=== PATIENT | female | born 1980 | race Caucasian/White ===

== ENCOUNTER 2024-02-11 08:47 | Emergency (ER) | payer OTHER, SELFPAY ==
[2024-02-11 09:01] VITALS: BP 148/91; PULSE 76; RESP 16; TEMP 36.6; O2SAT 99; BMI 40.3
--- NOTE | 2024-02-11 09:18 | ED.GENADULT ---
HPI - General Adult General Chief complaint: Shortness of Breath/Dyspnea Stated complaint: shortness of breath, chest tightness Time Seen by Provider: 02/11/24 09:17 History of Present Illness HPI narrative: Yesterday, having headaches. Today woke up at 2 am feeling like she couldn't breathe or hard to take a deep breath. 43-year-old woman presenting to the emergency department with a sensation of chest pressure heaviness that began this dollyman. She did have a frontal headache yesterday and it has continued but much less now. She is concerned partly given her family history were father with an IN at age 55 in subsequent strokes. Mother with early strokes. Little bit of a cough which she attributes to the humidity. Just feels exertionally fatigued and feels like she can not catch her breath with walking. Little leg swelling yesterday. Has been engaged in computer/desk work. Normally very active in this is not like her. No fever. History of dyspepsia heartburn Related Data Home Medications ?Medication ?Instructions ?Recorded ?Confirmed bupropion HCl PO 02/11/24 citalopram .ROUTE 02/11/24 hydrochlorothiazide 25 mg tablet 12.5 mg PO DAILY 02/11/24 02/11/24 omeprazole 20 mg capsule,delayed 20 mg PO DAILY 02/11/24 02/11/24 release Allergies Allergy/AdvReac Type Severity Reaction Status Date / Time estrogens, conjugated Allergy Intermediate Verified 02/11/24 08:59 trazodone Allergy Intermediate Verified 02/11/24 08:59 Tetanus Vaccines and Toxoid Allergy Mild Anaphylaxis Verified 02/11/24 08:59 Review of Systems Status of ROS: Reports: 6 or more systems reviewed and unremarkable except as noted in History and below [facility] Social History Smoking Status: Never smoker Non-prescribed substance use: denies use Exam Narrative: Exam Narrative: Abdomen is overweight overweight. Soft and nontender. No discomfort to palpation over the chest. She does appear mildly anxious, worried. Lungs are clear with equal expansion excursion. Lower extremities with maybe some bilateral dependent edema. Const: Vital Signs, click to edit/add: Vital Signs - 24 hr 02/11/24 09:01 02/11/24 10:27 02/11/24 10:29 Temperature 98 F Pulse Rate [Pulse Oximeter] 76 Respiratory Rate 16 16 Blood Pressure 166/93 H Blood Pressure [Ri ght Upper Arm] 148/91 H Pulse Oximetry 99 98 Oxygen Delivery Me thod Room Air Room Air Documenting provider has reviewed patient's vital signs: yes Course Vital Signs Vital signs: Initial Vital Signs Temperature 98 F 02/11/24 09:01 Temperature Source Temporal Artery Scan 02/11/24 09:01 Pulse Rate 76 02/11/24 09:01 Pulse Rhythm Regular 02/11/24 09:01 Respiratory Rate 16 02/11/24 09:01 Blood Pressure 148/91 H 02/11/24 09:01 Blood Pressure Mean 110 H 02/11/24 09:01 Blood Pressure Position Sitting 02/11/24 09:01 Pulse Oximetry 99 02/11/24 09:01 Oxygen Delivery Method Room Air 02/11/24 09:01 Vital Signs Temperature 98 F 02/11/24 09:01 Pulse Rate 76 02/11/24 09:01 Respiratory Rate 16 02/11/24 09:01 Blood Pressure 148/91 H 02/11/24 09:01 Pulse Oximetry 99 02/11/24 09:01 Oxygen Delivery Method Room Air 02/11/24 09:01 Temperature 98 F 02/11/24 09:01 Pulse Rate 76 02/11/24 09:01 Respiratory Rate 16 02/11/24 10:29 Blood Pressure 166/93 H 02/11/24 10:27 Pulse Oximetry 98 02/11/24 10:29 Oxygen Delivery Method Room Air 02/11/24 10:29 Medical Decision Making MDM Narrative Medical decision making narrative: Differential includes pneumonia, pleural effusion, heart failure, pulmonary embolus, angina, anemia, pneumothorax, URI, viral illness NOS, COVID, attack of anxiety. I favor the latter. Will do chest x-ray check labs. Perc score is 0. Anticipating negative D-dimer as well. Chest x-ray reviewed by me was unremarkable without pneumothorax, pneumomediastinum or infiltrate. Labs are reassuring. Slightly elevated CRP. Maybe viral process going on. Improved in symptoms and without further event in the emergency department. See patient discharge plan for further discussion Lab Data Lab results reviewed: Yes I reviewed the patient's lab results Labs: Lab Results 02/11/24 02/11/24 02/11/24 Range/Units 09:32 09:40 09:54 WBC 8.27 (4.50-11.00) K/uL RBC 4.49 (4.00-5.20) m/uL Hgb 12.3 (12.0-16.0) gm/dL Hct 38.1 (33.0-51.0) % MCV 85 (80-100) fL MCH 27 (26-34) pg MCHC 32 (32-36) gm/dL RDW Coeff of Aman 12.5 (11.5-15.5) % Plt Count 278 (140-440) K/uL Neut % (Auto) 76.5 H (42.0-72.0) % Lymph % (Auto) 13.5 L (20-44) % [place] % (Auto) 7.1 (0.0-11.0) % Eos % (Auto) 1.8 (0.0-7.0) % Baso % (Auto) 0.5 (0.0-3.0) % Neut # (Auto) 6.30 (1.7-7.0) K/uL Lymph # (Auto) 1.10 (0.90-2.90) K/uL [place] # (Auto) 0.60 (0.00-0.90) K/UL Eos # (Auto) 0.15 (0.00-0.50) K/uL Baso # (Auto) 0.04 (0.00-0.30) K/uL Abs Immat Gran (auto) 0.05 (0.00-0.30) K/uL Imm/Tot Granulo (auto) 0.6 % D-Dimer Quant (PE/DVT) < 0.27 (0.00-0.50) ug/ml Sodium 136 (135-149) mmol/L Potassium 4.1 (3.6-5.1) mmol/L Chloride 105 (96-114) mmol/L Carbon Dioxide 25 (20-32) mmol/L Anion Gap 6 L (7-15) mEq/L BUN 11 (5-24) mg/dL Creatinine 0.7 (0.5-1.5) mg/dL Estimated Creat Clear 103.46 Estimated GFR 109 ml/min Glucose 96 (60-115) mg/dL Calcium 9.2 (8.4-10.6) mg/dL Troponin I < 0.01 L (0.01-0.04) ng/mL C-Reactive Protein 1.6 H (0.5-1.0) mg/dL NT-Pro-B Natriuret Pep 209 pg/mL SARS-CoV-2 (PCR) Negative SARS-CoV-2 (Negative) Influenza Type A (PCR) Negative PCR FLU A (Negative) Influenza Type B (PCR) Negative PCR FLU B (Negative) RSV (PCR) Negative PCR RSV (Negative) POC Troponin I 0.01 (0.01-0.04) ng/ml ECG Data Attestation: I personally reviewed and interpreted this ECG as follows: (Normal sinus rhythm. No ischemic changes. Rate of 77) Discharge Plan Discharge Clinical Impression: Atypical chest pain, Other social stressor Patient Disposition: Home, Self-Care Condition: Improved Additional Instructions: I am happy you are feeling better. I suppose it is good that cannot find anything specifically wrong. Hopefully you can find some time for yourself, to relax. Return/be seen for significant escalation in pain, associated shortness of breath, nausea. For longer-term treatment of heartburn/reflux, might consider daily famotidine as opposed omeprazole unless clearly ineffective. Prescriptions: No Action omeprazole 20 mg capsule,delayed release(DR/EC) 20 mg PO DAILY hydrochlorothiazide 25 mg tablet 12.5 mg PO DAILY bupropion HCl PO citalopram [Celexa] .ROUTE Follow Up/Referrals: Provider,Not a Local [Primary Care Provider] - Stand Alone Forms: [employer] Info Instructions
--- NOTE | 2024-02-11 09:32 | CRLHL7_ITS ---
For Patients: As a result of the Century Cures Act, medical imaging exams and procedure reports are released immediately into your electronic medical record. You may view this report before your referring provider. If you have questions, please contact your health care provider. INDICATION: Chest pain and dyspnea COMPARISON: None TECHNIQUE: PA and lateral views of the chest were acquired FINDINGS: TUBES AND LINES: None. HEART AND MEDIASTINUM: The heart size is normal. The mediastinal contour appears normal for patient age. LUNGS AND PLEURAL SPACES: The lungs appear normal.The pleural spaces are unremarkable. OSSEOUS STRUCTURES: Age-appropriate appearance. No acute focal finding. IMPRESSION: No evidence of active pulmonary disease. Dictated by Horacio Sung MD @ 02/11/2024 10:05:30 AM (Electronically Signed)
--- OUTSIDE RECORDS SUMMARY | 2024-02-11 09:49 | XMS_ITS | Encounter Summary ---
Author Organization [facility] Address [address] [address] Phone Care Team Providers Care Crab Catcher Name Role Phone Whit Devi PA-C Primary Care Pr ovider Reason for Visit * Reason Onset Date Comments Registry Management 01/07/2024 Left VM for Patient to update PHQ-9/ CB [facility]line [facility] [phone] Encounter Details Date Type Department Care Team (Late st Contact Info) Description 01/07/[address] [facility] - REGISTRY MANAGEMENT Carline Suarez, [facility] Registry Management (Left VM for Patient to update PHQ-9/ CB Carline [facility] [phone]) Social History Tobacco Use Types Packs/Day Years Used Date Smoking Tobacco: Never Smokeless Tobacco: Never Comments:smoked for 1 month at age 17 Alcohol Use Standard Drinks/Week Comments Yes 5 (1 standard drink = 0.6 oz pure alcohol) 3-4 days per week - 2 glasses of wine per day Humiliation, Afraid, Rape, and Kick questionnair e Answer Date Recorded Within the last year, have y ou been afraid of your partner or ex-partner? No 07/25/2023 Within the last year, have y ou been humiliated or emotionally abused in other ways by your partner or ex-partner? No Within the last year, have y ou been kicked, hit, slapped, or otherwise physically hurt by your partner or ex-partner? No 07/25/2023 Within the last year, have y ou been raped or forced to have any kind of sexual activity by your partner or ex-partner? No 07/25/2023 Social Connection and Isolat ion Panel [NHANES] Answer Date Recorded In a typical week, how many times do you talk on the phone with family, friends, or neighbors? More than three times a week 07/25/2023 How often do you get togethe r with friends or relatives? Twice a week 07/25/2023 How often do you attend chur ch or denominational services? Never 07/25/2023 Do you belong to any clubs o r organizations such as jew groups, unions, fraternal or athletic groups, or school groups? Yes 07/25/2023 How often do you attend meet ings of the clubs or organizations you belong to? More than 4 times per year 07/25/2023 Are you , , di vorced, , never , or living with a partner? 07/25/2023 AUDIT-C Answer Date Recorded Q1: How often do you have a drink containing alc ohol? 2-3 times a week 07/25/2023 Q2: How many drinks containi ng alcohol do you have on a typical day when you are drinking? 1 or 2 07/25/2023 Q3: How often do you have si x or more drinks on one occasion? Never 07/25/2023 Overall Financial Resource Strain (CARDIA) Answe r Date Recorded How hard is it for you to pa y for the very basics like food, housing, medical care, and heating? Not hard at all 08/21/2023 PHQ-2 Answer Date Recorded PHQ-2 Total 0 10/07/2023 [facility] - Occupational Stress Questionnaire Answer Date Recorded Do you feel stress - tense, restless, nervous, or anxious, or unable to sleep at night because your mind is troubled all the time - these days? Very much 07/25/2023 Exercise Vital Sign Answer Date Recorde d On average, how many days pe r week do you engage in moderate to strenuous exercise (like a brisk walk)? 1 day 07/25/2023 On average, how many minutes do you engage in exercise at this level? 20 min 07/25/2023 Hunger Vital Sign Answer Date Recorded Within the past 12 months, y ou worried that your food would run out before you got the money to buy more. Never true 10/07/19 24 Within the past 12 months, t he food you bought just didn't last and you didn't have money to get more. Never true 10/07/2023 PRAPARE - Transportation Answer Date Re corded In the past 12 months, has l ack of transportation kept you from medical appointments or from getting medications? No 09/19 In the past 12 months, has l ack of transportation kept you from meetings, work, or from getting things needed for daily living? No 10/07/2023 EH IP Custom Utilities Answer Date Nam rded Retired - How hard is it for you to pay for utilities like heat, water, and electricity? Not hard at all 10/07/2023 EH IP Housing Domain Answer Date Record ed Retired - What is your livin g situation today? I have a steady place to live 10/07/2023 EH IP Custom Utilities ([employer]) Answer Date Recorded How hard is it for you to pa y for the very basics like food, housing, medical care, and heating? 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 Sexual Orientation Not on file Job Start Date Occupation Industry Not on file Not on file Not on file documented as of this encounter Functional Status Functional Status Response Date of Assess ment Patient's Vision Adequate to Safely Complete Daily Activities Yes 03/13/2022 Patient's Memory Adequate to Safely Complete Daily Activities Yes 03/13/2022 Cognitive Status Response Date of Assessm ent Patient's Judgment Adequate to Safely Complete Daily Activities Yes 03/13/2022 documented as of this encounter Plan of Treatment Not on file documented as of this encounter Visit Diagnoses Not on filedocumented in this encounter Care Teams Crab Catcher Relationship Specialty Start Date End Date Katherinaalsrodrick-Whit Simmons PA-C [address] [place] [id number] PCP - General Family Medicine 12/31/23 documented as of this encounter
--- OUTSIDE RECORDS SUMMARY | 2024-02-11 09:49 | XMS_ITS | Clinical Summary ---
Author Organization [facility] Address [address] [address] Phone Care Team Providers Care Crossband Layer Name Role Phone Whit Devi PA-C Primary Care Pr ovider Allergies Active Allergy Reactions Criticality Noted Date Comments Estrogens Swelling,Other 02/11/2003 Erythema nodosum. Throat swells and fever. No Known Environmental Allergies 11/10/2008 No Known Food Allergy 11/10/2008 Tetanus Antitoxin Nausea and Vomiting,Swelling,O ther 01/31/2003 Throat swells and fever. Dad gets anaphylaxis with tetanus. Trazodone Swelling,Other 02/19/2003 Erythema nodosum. Throat swells and fever. Medications Medication Sig Dispensed Refills Start Date End Date Status omeprazole (PriLOSEC) 10 MG delayed-release capsule Take 10 mg by mouth one time a day. Take before meals. Do not crush. Active Vitamin D, Ergocalciferol, 01082 units capsule Take by mouth one time a day with breakfast. Active hydroCHLOROthiazide (Microzide) 12.5 MG capsuleIndications:E ssential hypertension Take 1 Capsule by mouth one time a day. 90 Each 3 07/26/2023 Active citalopram (CeleXA) 20 MG tabletIndications:Mo derate episode of recurrent major depressive disorder (HCC),Anxiety Take 1.5 Tablets by mouth one time a day. 135 Tablet 1 09/05/2023 03/29/2024 Active buPROPion XL (Wellbutrin XL) 150 MG 24 hour extended release tabletIndications:Janeth mann depressive disorder, recurrent episode, in partial remission (HCC) Take 2 Tablets by mouth every morning. Do not crush. No further refills without being seen. 180 Tablet 3 10/08/2023 10/02/2024 Active Hospital, Clinic, or Other Facility Administered Medication Ordered Dose Route Frequency Start Date End Date Status levonorgestrel (MIRENA) 20 MCG/24HR intra uterine device 1 Intra Uterine DeviceIndications:Encoun ter for initial prescription of intrauterine contraceptive device (IUD) 1 Intra Uterine Device IU CONTINUOUS 06/06/2018 Active Active Problems Patient Care Coordination No te Formatting of this note migh t be different from the original. HCC Diagnosis Review please Problem Noted Date Diagnosed Date Prediabetes 11/13/2022 Overview: Patient met criteria for the diabetes prevention program for pre-diabetes patients. Problem ? prediabetes? added to patient's list. Reviewed and approved by Primary Care [facility]. Eligibility criteria: https://www.cdc.gov/diabetes/prevention/program-eligibility.html Please contact Dr. Sue Joe with any concerns. Intractable vomiting with nausea 03/13/2022 Gastroesophageal reflux disease without esophagi tis 03/13/2022 COVID-19 03/13/2022 Trochanteric bursitis of right hip 12/02/2018 Chronic diarrhea 05/29/2018 Chronic abdominal pain 05/29/2018 Heart palpitations 10/26/2016 Major depressive disorder, recurrent episode, mi ld 08/26/2015 Class 2 severe obesity due t o excess calories with serious comorbidity and body mass index (BMI) of 36.0 to 36.9 in adult 12/10/2002 Overview: Updated per 04/21/17 IMO import Sleep disturbance, unspecified 12/10/2002 Overview: 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. IMO Update 05/01 RADHA (obstructive sleep apnea) 10/01/2001 Overview: Obstructive, secondary to crowded oropharynx. 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 difficile colitis 04/18/2018 018 Skin lesion of breast 10/26/20162020 Arthralgia, unspecified joint 10/26/2016 12/05/2020 Incontinence of urine 05/16/20092016 Overview: IMO Update 05/01 Encounter for other general counseling or advice on contraception 04/06/2005 12/05/2020 Overview: IMO Update Other affections of shoulder region, not elsewhere classified 11/22/2003 10/26/2016 Overview: IMO Update 05/01 Anemia, unspecified 03/27/2002 10/27/19 Overview: IMO Update 05/01 Encounters Date Type Department Care Team Description 01/07/2024 Patient Outreach [facility] - REGISTRY MANAGEMENT Carline Suarez, [facility] Registry Management (Left VM for Patient to update PHQ-9/ CB Carline [facility] [phone]) 12/17/2023 Patient Outreach [facility] - REGISTRY MANAGEMENT Alessia Stevens, ANALYTICS SPECIALIST Registry Management (Left message for patient to update PHQ9, can return call to [phone].) 12/03/2023 8:00 AM CDT Ancillary Procedure [facility] [address] [place], [place] [id number] Whit Devi PA-C Abnormal mammogram 11/26/2023 Travel 11/19/2023 11:40 AM CDT Ancillary Procedure [facility] [address] [place] [id number] Whit Devi PA-C Encounter for screening mammogram for malignant neoplasm of breast 11/12/2023 Travel from Last 3 Months Immunizations Name Administration Dates Next Due COVID-19 MRNA Vaccine (Pfize r ELLEN-SUCR) Leos 12+ Yrs (2022) 07/26/2023 COVID-19 mRNA Vaccine (Pfize r-Purple 12+ Yrs) 05/24/2021,10/26/2020,10/05/2020 DPT <7 years (Historic) 04/03/1985,06/21,06/22/1980,1979,02/16/1980 Hepatitis A, Adult 08/14/2019 Influenza (3+ Yrs) Trivalent PF-Single Dose Syringe/Vial (Flu Clinic) 08/01/2012 Influenza (Historic Use Only) 06/24/2009 Influenza A H1n1 07/26/2009 Influenza Quad Preservative Free 07/26/2023,04/21,05/31/2017 Influenza Seasonal Inj A,B 04/18/2011,04/12/2010 MMR 03/26/1991,04/18/1981 OPV (Historic Use Only) 04/03/1985,06/21,04/21/1980,1979 TD >7yrs With Preservative 12/22/2010,08/19/2003 ,11/25/1992 Tdap (7 years and older) 07/26/2023 Surgical History Surgery Date Site/Laterality Comments US PELVIC COMP 11/09/2002 US ABDOMEN COMPLETE 08/18/2002 COLONOSCOPY 04/08/2002 LAP,DIAGNOSTIC ABDOMEN 04/09/2002 With open excision of torsed epiploic tag of descending colon. SLEEP STUDY, ATTENDED 11/01/2001 APPENDECTOMY With cautery of bleeding ovarian cyst. COLONOSCOPY,BIOPSY 02/21/2004 EGD BIOPSY SINGLE/MULTIPLE 02/21/2004 SURG RX MISSED ABORTN,1ST TRI 11/10/2008 SLING OPER STRES INCONTINENCE 06/24/2009 CHOLECYSTECTOMY WISDOM TOOTH EXTRACTION COLONOSCOPY 08/30/2017 Abdomen/N/A Procedure: COLONOSCOPY DIAGNOSTIC; Surgeon: Leonardo Sales MD; Location: [facility] COLONOSCOPY 08/30/2017 Dr Leonardo Sales [facility] Medical History Medical History Date Comments Obesity, unspecified 12/10/2002 Sleep disturbance, unspecified 12/10/2002 A lpha intrusion during sleep cycle causing daytime somnolence. Anemia, unspecified 03/27/2002 Unspecified sleep apnea 10/01/2001 Obstruct silvio, secondary to crowded oropharynx. 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 Anxiety 12/20/2010 Depression 12/20/2010 Gastroesophageal reflux disease 04/21/2020 Hypertension 11/19/2020 Covid-19 03/13/2022 Prediabetes 11/13/2022 Family History Medical History Relation Comments Cardiovascular Disease Father Stroke GI Disease Father PUD Hypertension Father Rheumatoid Arthritis Father Cancer Maternal Aunt Liver Cancer Cancer Maternal Grandmother Liver Cance r Cardiovascular Disease Maternal Grandmother Hear t Attack Crohn's Disease Maternal Grandmother Diabetes Maternal Grandmother Hypertension Maternal Grandmother Skin Condition Maternal Grandmother Ecezema Cancer Maternal Uncle HIV caused cance r Allergies Mother Cardiovascular Disease Mother Stroke GI Disease Mother Crohns Hypertension Mother Musculo-skeletal Disease Mother psoriat ic and rheumatoid arthritis Neuro Disease Mother Stroke, age 47 Other Endocrine Disease Mother Thyroid disease Rheumatoid Arthritis Mother Skin Condition Mother Psorasis Other Endocrine Disease Other 1 Grandmot her had gallbladder removed. Skin Condition Other 2 Psoriasis - uncl e Cardiovascular Disease Paternal Grandfather Hear t Attack Cardiovascular Disease Paternal Grandmother Stro ke Colon Cancer Negative Family Hx Relation Status Comments Father Maternal Aunt (Age 18) Maternal Grandmother (Age 72) Maternal Uncle Mother Other 1 Other 2 Paternal Grandfather NM Paternal Grandmother CHF, NM, qu adruple bypass Social History Tobacco Use Types Packs/Day Years [...] 07/25/2023 How often do you attend chur or druze services? Never 07/25/2023 Do you belong to any clubs o r organizations such as samaritan groups, unions, fraternal or athletic groups, or [...] Answer Date Recorded PHQ-2 Total 0 10/07/2023 [facility] [place] of Occupat ional Health - Occupational Stress Questionnaire Answer Date [...] Sex Assigned at Female 09/24/2018 4:53 PM BATCH TANK CONTROLLER Gender Identity Female 09/24/2018 4:53 PM BATCH TANK CONTROLLER Sexual Orientation Not on file Job Start Date Occupation Industry Not on file Not on file Not on file Obstetrics History Para Term AB IAB SAB Ectopic Molar Multiple Living Live Births 1 1 1 0 0 0 0 0 0 1 1 Date Outcome GA Total Labor Labor/2nd/3rd Weight Sex Type Anes PTL [place] A1 A5 Name Clin 008 Term 39w 0d 3459 g (7 lb 10 oz) F LV/ VAG Livin g Laberg e Delivery Location:[facility] Comments 11/29/2007-Mild or unspec pre -eclampsia, cord entanglement, 2nd degree perineal laceration, other spec trauma to perinium and vulva, delivered. Last Filed Vital Signs Vital Sign Reading Time Taken Comments Blood Pressure 131/83 10/08/2023 2:08 PM CDT Pulse 76 10/08/2023 2:08 PM CDT Temperature 36.9 ??C (98.4 ??F) 08/28/2022 12:[address] Respiratory Rate 18 03/14/2022 1:41 PM CDT Oxygen Saturation 98% 10/08/2023 2:08 PM CDT Inhaled Oxygen Concentration - - Weight 132 kg (291 lb) 10/08/2023 2:08 PM CDT Height 172.7 cm (5' 8) 10/08/2023 2:08 PM CDT Body Mass Index 44.25 10/08/2023 2:08 PM CDT Plan of Treatment Health Maintenance Due Date Last Done Comments Hepatitis B Vaccine (Standing Order) (1 of 3 - 19+ 3-dose series) 12/15/1998 Last pap w/o HPV Testing 06/04/2022 019, 06/04/2019, 10/06/2008, Additional history exists Influenza Vaccine Seasonal (Standing Order) (#1) 2024 07/26/2023, 05/04/2019, 05/31/2017, Additional history exists Cervical Cancer Screening 06/04/2024 Last pap w/ HPV Testing 06/04/2024 06/04/2019 MAMMO,SCREEN 11/18/2024 11/19/2023, 12/11/2021 PERTUSSIS (Standing Order) Completed 07/26, 04/03/1985, 06/21/1981, Additional history exists HPV Vaccine (Standing Order) Aged Out No longer eligible based on patient's age to complete this topic Pneumococcal/PCV20 Vaccine: Pediatrics (2-5 yrs) and At-Risk Patients (6-64 yrs) (Standing Order) Aged Out No longer eligible based on patient's age to complete this topic Medical Devices Implanted Type Area Window Cutter Device Identifier Shelf Expiration Date Model / Serial / Lot Sling Incontinence Hugo Tape Kit W/ Inserters [place] - [id number] Implanted:Qty: 1 on 06/24/2009 at [facility] N/A: Sub Urethreral COLOPLAST CONNOR. 09/10/2013 [id number] / / [id number] Procedures Procedure Name Priority Date/Time Associated Diagnosis Comments MAMM MOISES DIGITAL ADDL LEFT Routine 12/03/2023 8:42 AM CDT Abnormal mammogram MAMM DIGITAL SCREENING Routine 11/19/2023 11:44 AM CDT Encounter for screening mammogram for malignant neoplasm of breast PAP, LIQUID BASED Routine 06/04/2019 3:4 0 PM BATCH TANK CONTROLLER Screening for malignant neoplasm of cervix from Last 3 Months or Most Recently Relevant to Health Maintenance Results * MAMM MOISES DIGITAL ADDL LEFT (12/03/2023 8:42 AM CDT) Anatomical Region Laterality Modality Breast Left Mammography 12/03/2023 8:42 AM CDT Narrative 12/03/2023 4:06 PM CDT This document is currently in Final Status Exam EXTRA VIEW DIAGNOSTIC DIGITAL MAMMOGRAMS INCLUDING TOMOSYNTHESIS COMPARISON: 11/19/2023 and 12/11/2021 TECHNIQUE: Craniocaudal and oblique left breast tomosynthesis views were obtained. BREAST DENSITY: ??There are scattered areas of fibroglandular density. FINDINGS: The area in the left breast medial on the craniocaudal view on tomosynthesis views suggesting glandular tissue and no abnormalities are seen on the oblique view. No further imaging is necessary today. RECOMMENDATION: Mammography bilaterally in 1 year. BI-RADS 2: Benign. TRACKING PURPOSES: ??Return to annual screening. Dictated By: Elijah Garza MD 12/03/2023 8:51 AM Edited By: JOSE 12/03/2023 9:03 AM Electronically Signed: Elijah Garza MD 12/03/2023 4:06 PM Procedure Note Elijah Garza MD - 12/03/2023 This document is currently in Final Status Exam EXTRA VIEW DIAGNOSTIC DIGITAL MAMMOGRAMS INCLUDING TOMOSYNTHESIS COMPARISON: 11/19/2023 and 12/11/2021 TECHNIQUE: Craniocaudal and oblique left breast tomosynthesis views wereobtained. BREAST DENSITY: There are scattered areas of fibroglandular density. FINDINGS: The area in the left breast medial on the craniocaudal view ontomosynthesis views suggesting glandular tissue and no abnormalities areseen on the oblique view. No further imaging is necessary today. RECOMMENDATION: Mammography bilaterally in 1 year. BI-RADS 2: Benign. TRACKING PURPOSES: Return to annual screening. Dictated By: Elijah Garza MD 12/03/2023 8:51 AM Edited By: JOSE 12/03/2023 9:03 AM Electronically Signed: Elijah Garza MD 12/03/2023 4:06 PM Whit Watkins Marito [facility]ION [facility] MAMMO GRAPHY ORDERABLES * MAMM DIGITAL SCREENING (11/19/2023 11:44 AM CDT) Anatomical Region Laterality Modality Breast Bilateral Mammography 11/19/2023 11:4 4 AM CDT Narrative 11/19/2023 5:14 PM CDT This document is currently in Final Status Exam MAMM DIGITAL SCREENING COMPARISON: 12/11/2021. CLINICAL INDICATION: Routine screening. CLINICAL RISK FACTORS: None. TECHNIQUE: Routine CC and MLO views of the breasts were performed bilaterally. Computer-Aided Detection System was utilized. BREAST DENSITY: The breasts are heterogeneously dense, which may obscure small masses. FINDINGS: Nodularity within the medial inferior aspect of the left breast is present approximately 9 cm to the nipple. There are no abnormal calcifications, or skin thickening. There is no architectural distortion identified. IMPRESSION: 1. ??No change in the right breast. 2. ??Nodularity within the medial inferior aspect of the left breast. Recommend cone compression view. If the area persists, ultrasound should be obtained. BI-RADS 0: Incomplete. Needs additional imaging evaluation and/or prior mammograms for comparison. Your mammogram shows that your breast tissue is dense. Dense breast tissue is relatively common and is found in more than 40% of women. However, dense breast tissue may make it more difficult to identify precancerous lesions or cancer through a mammogram and may also be associated with an increased risk of breast cancer. This information about the results of your mammogram is given to you to raise your own awareness and to help inform your conversations with your treating clinician who has received a report of your mammogram results. Together you can decide which screening options are right for you based on your mammogram results, individual risk factors, or physical examination. Dictated By: Petrona Mitchell MD 11/19/2023 12:33 PM Edited By: DENG 11/19/2023 1:45 PM Electronically Signed: Petrona Mitchell MD 11/19/2023 5:14 PM Procedure Note Petrona Mitchell MD - 11/19/2023 This document is currently in Final Status Exam MAMM DIGITAL SCREENING COMPARISON: 12/11/2021. CLINICAL INDICATION: Routine screening. CLINICAL RISK FACTORS: None. TECHNIQUE: Routine CC and MLO [facility] the [facility]. Computer-Aided Detection System was utilized. BREAST DENSITY: The breasts are heterogeneously dense, which may obscuresmall masses. FINDINGS: Nodularity within the medial inferior aspect of the left breastis present approximately 9 cm to the nipple. There are no abnormalcalcifications, or skin thickening. There is no architectural distortionidentified. IMPRESSION: 1. No change in the right breast. 2. Nodularity within the medial inferior aspect of the left breast.Recommend cone compression view. If the area persists, ultrasound shouldbe obtained. BI-RADS 0: Incomplete. Needs additional imaging evaluation and/or priormammograms for comparison. Your mammogram shows that your breast tissue is dense. Dense breast tissueis relatively common and is found in more than 40% of women. However,dense breast tissue may make it more difficult to identify precancerouslesions or cancer through a mammogram and may also be associated with anincreased risk of breast cancer. This information about the results ofyour mammogram is given to you to raise your own awareness and to helpinform your conversations with your treating clinician who has received areport of your mammogram results. Together you can decide which screeningoptions are right for you based on your mammogram results, individual riskfactors, or physical examination. Dictated By: Petrona Mitchell MD 11/19/2023 12:33 PM Edited By: DENG 11/19/2023 1:45 PM Electronically Signed: Petrona Mitchell MD 11/19/2023 5:14 PM hWit [facility] MAMMO GRAPHY ORDERABLES * PAP, LIQUID BASED (06/04/2019 3:40 PM BATCH TANK CONTROLLER) Case Report Gynecologic Cytology Report ? Case: [id number] ? Authorizing Provider: ??Xni Alfaro MD ?Collected: ? 06/04/2019 1540 ? Ordering Location: ? [facility] ?? Received: ?06/04/2019 1642 ? [facility] ? First Screen: ?Linda, Conchis M ? Pathologist: ? Rosalia Amin MD ? Specimen: ?LIQUID-BASED PAP, Cervix ? 06/08/2019 1:55 PM BATCH TANK CONTROLLER [facility] Gynecologic Cytology Interpretation , [facility] Collection Atypical Squamous Cells of Undetermined Significance (ASC-US). 06/08/2019 1:55 PM BATCH TANK CONTROLLER [facility] Specimen Adequacy Satisfactory for evaluation, endocervical/tr ansformation zone component is present. 06/08/2019 1:55 PM BATCH TANK CONTROLLER [facility] Pap Disclaimer Note: The Pap test is a screening procedure and is not, by itself, diagnostic. False negatives and positives do occur. Correlation with clinical findings, history and a program of regular examinations including Pap tests is warranted to help detect cancers and precursor lesions of the female genital tract. 06/08/2019 1:55 PM BATCH TANK CONTROLLER [facility] [place] VAGINAL CERVIX / Unknown Non-blood collection / Unknown 06/04/2019 3:40 PM BATCH TANK CONTROLLER 06/04/2019 4:42 PM BATCH TANK CONTROLLER Xin Alfaro MD EC PATHOLOGY ORDERAB LES Performing Organization Address City/State/[facility] Co de Phone Number [facility] [address] [place] [id number], [facility] from Last 3 Months or Most Recently Relevant to Health Maintenance Advance Directives For more information, please contact: [phone] * Full Code (Latest Code Status on File) Date Activated Date Inactivated Comments 03/14/2022 3:02 AM 03/14/2022 10:11 PM * Full Code Date Activated Date Inactivated Comments 04/15/2018 3:46 PM 04/19/2018 6:48 PM * No Code Status Date Activated Date Inactivated Comments 08/17/2003 8:07 AM 08/17/2003 8:07 AM Care Teams Crossband Layer Relationship Specialty Start Date End Date KatherinaalsWhit Palafox PA-C [facility] [place] [address] PCP - General Family Medicine 12/31/23
--- OUTSIDE RECORDS SUMMARY | 2024-02-11 09:49 | XMS_ITS | Encounter Summary ---
Author Organization [facility] Address [address] [address] Phone Care Team Providers Care Keno Writer / Runner Name Role Phone Jessy Araujo APRN, SANDY Primary Care Provider Encounter Details Date Type Department Care Team (Latest Contact Info) Description 11/26/2023 Travel Social History Tobacco Use Types Packs/Day Years [...] often do you attend chur ch or voodoo services? Never 07/25/2023 Do you belong to any clubs o r organizations such as alevism groups, unions, fraternal or athletic groups, or [...] Answer Date Recorded PHQ-2 Total 0 10/07/2023 [facility] of Occupat ional Health - Occupational Stress [...] Sex Assigned at Female 09/24/2018 4:53 PM HARDWOOD FLOOR SANDER Gender Identity Female 09/24/2018 4:53 PM HARDWOOD FLOOR SANDER Sexual Orientation Not on file Job Start [...] on filedocumented in this encounter Care Teams Keno Writer / Runner Relationship Specialty Start Date End Date Jessy Araujo, LEAD RAMP AGENT, GEOGRAPHIC AREA INTELLIGENCE OFFICER PCP - General Family Medicine 11/29/21 12/30/23 documented as of this encounter
--- OUTSIDE RECORDS SUMMARY | 2024-02-11 09:49 | XMS_ITS | Encounter Summary ---
Author Organization [employer] [facility] Address [address] [address] Phone Care Team Providers Care Learning Disabilities Teacher Name Role Phone Jessy Araujo APRN, SANDY Primary Care Provider Encounter Details Date Type Department Care Team (Latest Contact Info) Description 11/12/2023 Travel Social History Tobacco Use Types Packs/Day [...] often do you attend chur ch or hoahaoism services? Never 07/25/2023 Do you belong to any clubs o r organizations such as hinduism groups, unions, fraternal or athletic groups, or [...] Answer Date Recorded PHQ-2 Total 0 10/07/2023 [facility] of Occupat ional Health - Occupational Stress [...] Sex Assigned at Female 09/24/2018 4:53 PM MEDICAL COMMUNICATION SPECIALIST Gender Identity Female 09/24/2018 4:53 PM MEDICAL COMMUNICATION SPECIALIST Sexual Orientation Not on file Job Start [...] on filedocumented in this encounter Care Teams Learning Disabilities Teacher Relationship Specialty Start Date End Date Jessy Araujo, AIRLINE PILOT FLIGHT INSTRUCTOR, ACCOUNTANT BOOKKEEPER PCP - General Family Medicine 11/29/21 12/30/23 documented as of this encounter
--- OUTSIDE RECORDS SUMMARY | 2024-02-11 09:49 | XMS_ITS | Encounter Summary ---
Author Organization [facility] Address [address] [address] Phone Care Team Providers Care Airplane Patrol Pilot Name Role Phone Lee Paulson Primary Care Provider + Justus Benson MD Primary Care Provider [phone] Tony Wade MD, Joseph Primary Care Provider + [phone] Maty Charles MD Primary Care Provider Unava ilable Elsewhere, Pcp Primary Care Provider Siav Arndt MD Primary Care Provider Erin vailable Lee Paulson Primary Care Provider + Xin Alfaro MD Primary Care Provider [phone] Jessy Araujo APRN, MANUFACTURING LEADER Primary Care Provider Whit Devi PA-C Primary Care Pr ovider Encounter Details Date Type Department Care Team (Late st Contact Info) Description 02/11/2003 PROBLEM LIST [facility] [address] [place] [address] Terri Nelson PA-C [address] [place] [address] Social History Tobacco Use Types Packs/Day Years Used Date Smoking Tobacco: Never Assessed Sex and Gender Information Value Date Recorded Sex Assigned at Female 09/24/2018 4:53 PM LACQUER PIN PRESS OPERATOR Gender Identity Female 09/24/2018 4:53 PM LACQUER PIN PRESS OPERATOR Sexual Orientation Not on file Job Start Date Occupation Industry Not on file Not on file Not on file documented as of this encounter Progress Notes * Terri Ortega - 02/11/2003 12:00 AM [facility] PROBLEM LIST LATISHA MERAZ 1980 SEX Page 1 of 1 DC# PRIMARY MD YOLA GarciaC PROBLEM LIST* (01/15/02) (Diagnoses) - Obesity - 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 - Erythema nodosum, 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 PROCEDURES* (12/10/02) - Sleep study, 11/01/01; no apnea, but cycles of alpha but cycles of alpha intrusion - S/p laparoscopic to open excision of torsed epiploic tag of the descended colon PREVENTION (12/10/02) - Pap/pelvic, 12/10/02 MEDICATIONS* (12/10/02 - Depo Provera DRUG ALLERGIES* (02/11/03) - Tetanus (convulsion when she was six months old) - Trazodone and/or Lunelle (erythema nodosum) IMMUNIZATIONS (12/10/02 - Adult DT 11/25/92 FAMILY HISTORY (12/10/02) - Father CAD with stent placement, palpitations - Mother possible stroke - Paternal grandmother CHF, NOTES (12/10/02) - , no children - Works as computer tech for [employer] - No tobacco - Rare alcohol - Exercises regularly NICOLAS/eva cc: xc: A UDN: [id number] JOB#:[id number] documented in this encounter Plan of Treatment Not on file documented as of this encounter Visit Diagnoses Not on filedocumented in this encounter Additional Health Concerns Infection Onset Date Last Indicated Resolved Time R/O C. Diff 03/15/2019 03/15/2019 04/12/2019 11:0 6 PM CDT R/O Enteric Pathogens 03/15/2019 03/15/20192018 11:06 PM CDT R/O COVID-19 11/09/2019 11/09/2019 11/10/2019 2:55 PM CDT R/O COVID-19 04/24/2020 04/24/2020 04/25/2020 2:35 PM CDT R/O COVID-19 08/01/2020 08/01/2020 08/03/2020 5:17 AM LACQUER PIN PRESS OPERATOR R/O C. Diff 10/28/2020 10/28/2020 10/28/2020 4:47 PM CDT R/O Enteric Pathogens 10/28/2020 10/28/20202020 9:18 AM CDT COVID-19 Confirmed Comment:Tested positive 03/06/22 03/07/2022 03/13/2022 022 11:06 PM CDT R/O Enteric Pathogens 03/13/2022 03/14/20222021 8:05 PM CDT R/O C. Diff 03/13/2022 03/14/2022 03/14/2022 4:40 PM CDT documented as of this encounter Care Teams Airplane Patrol Pilot Relationship Specialty Start Date End Date Lee Paulson MBBS [address] [place] [address] PCP - General 03/31/07 07/29/11 Justus Benson MD [address] [place] [address] PCP - General 08/19/03 03/30/07 Fernando Jimenez MD [address] [place] [address] PCP - General 07/24/02 08/18/03 Maty Charles MD [address] [place] [address] PCP - General Internal Medicine 07/30/11 07/29/13 Elsewhere, Pcp PCP - General 07/30/13 04/09/14 Siva Neil MD [address] [address] PCP - General Family Medicine 04/10/14 08/25/15 Lee Paulson MBBS [address] [place] [address] PCP - General Family Medicine 08/26/15 10/25/16 Xin Alfaro MD [address] [place] [phone] PCP - General Family Medicine 10/26/16 11/28/21 Jessy Araujo, FILING MACHINE OPERATOR, MANUFACTURING LEADER [address] [place] [phone] PCP - General Family Medicine 11/29/21 12/30/23 Whit Devi, YOLAC [address] [place] [phone] PCP - General Family Medicine 12/31/23 documented as of this encounter
--- OUTSIDE RECORDS SUMMARY | 2024-02-11 09:49 | XMS_ITS | Encounter Summary ---
Author Organization [facility] Address [address] [address] Phone Care Team Providers Care Building Superintendent Name Role Phone Jessy Araujo APRN, SANDY Primary Care Provider Reason for Visit * Ancillary Services (Routine) - Closed Specialty Diagnoses / Procedures Referred By Jona gallagher Referred To Contact Radiology Diagnoses Abnormal mammogram Procedures MAMM MOISES DIGITAL ADDL LEFT Whit Devi PA-C [address] [place] [address] Referral ID Status Reason Start Date Expiration Date Visits Re quested Visits Authorized [id number] Closed 11/20/2023 02/19/2025 1 1 Encounter Details Date Type Department Care Team (Latest Contact Info) Description 12/03/2023 8:00 AM CDT Ancillary Procedure [facility] [address] [place], [place] [id number] Whit Devi PA-C [address] [place] [address] Abnormal mammogram Social History Tobacco Use Types Packs/Day Years [...] How often do you attend chur or holiness services? Never 07/25/2023 Do you belong to any clubs o r organizations such as shinto groups, unions, fraternal or athletic groups, or [...] Answer Date Recorded PHQ-2 Total 0 10/07/2023 [facility] - Occupational Stress [...] Sex Assigned at Female 09/24/2018 4:53 PM RESEARCH LABORATORY MANAGER Gender Identity Female 09/24/2018 4:53 PM RESEARCH LABORATORY MANAGER Sexual Orientation Not on file Job Start [...] on file documented as of this encounter Procedures Procedure Name Priority Date/Time Associated Diagnosis Comments MAMM MOISES DIGITAL ADDL LEFT Routine 12/03/2023 8:42 AM CDT Abnormal mammogram documented in this encounter Results * MAMM MOISES DIGITAL ADDL LEFT [...] Elijah Garza MD 12/03/2023 4:06 PM Whit LAURENT MAMMO GRAPHY ORDERABLES documented in this encounter Visit Diagnoses Diagnosis Abnormal mammogram Abnormal mammogram, unspecified documented in this encounter Care Teams Building Superintendent Relationship Specialty Start Date End Date Jessy Araujo, AGRICULTURAL ECONOMICS PROFESSOR, MEDICAL ONCOLOGIST PCP - General Family Medicine 11/29/21 12/30/23 documented as of this encounter
--- OUTSIDE RECORDS SUMMARY | 2024-02-11 09:49 | XMS_ITS | Encounter Summary ---
Author Organization [facility] Address [address] [address] Phone Care Team Providers Care Manufacturing Quality Manager Name Role Phone Jessy Araujo APRN, CNP Primary Care Provider Whit Devi PA-C Primary Care Pr ovider Reason for Visit * Reason Comments Refill Request hydroCHLOROthiazide Encounter Details Date Type Department Care Team (Late st Contact Info) Description 04/08/2023 Refill [facility] [address] [place] [address] Jessy Araujo APRN, SANDY [address] [place] [address] Refill Request (hydroCHLOROthiazide ) Social History Tobacco Use Types Packs/Day Years [...] afraid of your partner or ex-partner? No 04/09/2023 Within the last year, have y ou been humiliated or emotionally abused in other ways by your partner or ex-partner? No Within the last year, have y ou been kicked, hit, slapped, or otherwise physically hurt by your partner or ex-partner? No 04/09/2023 Within the last year, have y ou been raped or forced to have any kind of sexual activity by your partner or ex-partner? No 04/09/2023 Social Connection and Isolat ion Panel [NHANES] Answer Date Recorded In a typical week, how many times do you talk on the phone with family, friends, or neighbors? Three times a week 04/09/2023 How often do you get togethe r with friends or relatives? Once a week 04/09/2023 How often do you attend chur ch or confucianist services? Never 04/09/2023 Do you belong to any clubs o r organizations such as congregational groups, unions, fraternal or athletic groups, or school groups? Yes 04/09/2023 How often do you attend meet ings of the clubs or organizations you belong to? More than 4 times per year 04/09/2023 Are you , , di vorced, , never , or living with a partner? 04/09/2023 AUDIT-C Answer Date Recorded Q1: How often do you have a drink containing alc ohol? 2-3 times a week 04/09/2023 Q2: How many drinks containi ng alcohol do you have on a typical day when you are drinking? 1 or 2 04/09/2023 Q3: How often do you have si x or more drinks on one occasion? Never 04/09/2023 Overall Financial Resource Strain (CARDIA) Answe r Date Recorded How hard is it for you to pa y for the very basics like food, housing, medical care, and heating? Not hard at all 04/09/2023 PHQ-2 Answer Date Recorded PHQ-2 Total 0 08/27/2022 [facility] [place] [facility] Occupat ional Health - Occupational Stress Questionnaire Answer Date Recorded Do you feel stress - tense, restless, nervous, or anxious, or unable to sleep at night because your mind is troubled all the time - these days? To some extent 04/09/2023 Exercise Vital Sign Answer Date Recorde d On average, how many days pe r week do you engage in moderate to strenuous exercise (like a brisk walk)? 1 day 04/09/2023 On average, how many minutes do you engage in exercise at this level? 30 min 04/09/2023 Hunger Vital Sign Answer Date Recorded Within the past 12 months, y ou worried that your food would run out before you got the money to buy more. Never true 04/09/20 23 Within the past 12 months, t he food you bought just didn't last and you didn't have money to get more. Never true 04/09/2023 PRAPARE - Transportation Answer Date Re corded In the past 12 months, has l ack of transportation kept you from medical appointments or from getting medications? No 03/22 In the past 12 months, has l ack of transportation kept you from meetings, work, or from getting things needed for daily living? No 04/09/2023 Sex and Gender Information Value Date Recorded Sex Assigned at Female 09/24/2018 4:53 PM LEGAL ADVISER Gender Identity Female 09/24/2018 4:53 PM LEGAL ADVISER Sexual Orientation Not on file Job Start [...] Yes 03/13/2022 documented as of this encounter Ordered Prescriptions Prescription Sig Dispensed Refills Start Date End Da te hydroCHLOROthiazide (Microzide) 12.5 MG capsuleIndications:Esse ntial hypertension Take 1 Capsule by mouth one time a day. NEEDS APPOINTMENT BY 05/09/23 FOR MORE REFILLS. 30 Each 04/09/2023 06/06/2023 documented in this encounter Miscellaneous Notes * Telephone Encounter - Joanne Victoria RN - 04/09/2023 7:42 AM CDT Previously followed by Jessy Araujo, HIM SPECIALIST, LEASING DIRECTOR . Has not seen any other Providers in last year.Routing for review. Thank you! Courtesy refill #1 A scheduling appointment request was completed at this time. documented in this encounter Plan of Treatment Not on file documented as of this encounter Visit Diagnoses Diagnosis Essential hypertension Unspecified essential hypertension documented in this encounter Discontinued Medications Medication Sig Discontinue Reason Start Date End Da te hydroCHLOROthiazide (Microzide) 12.5 MG capsuleIndications:Essent ial hypertension Take 1 Capsule by mouth one time a day. Reorder 05/14/2022 04/08/2023 documented as of this encounter Care Teams Manufacturing Quality Manager Relationship Specialty Start Date End Date Jessy Araujo APRN, LEASING DIRECTOR PCP - General Family Medicine 11/29/21 12/30/23 Whit Devi, YOLAC [address] [place] [address] PCP - General Family Medicine 12/31/23 documented as of this encounter
--- OUTSIDE RECORDS SUMMARY | 2024-02-11 09:49 | XMS_ITS | Encounter Summary ---
Author Organization [facility] Address [address] [address] Phone Care Team Providers Care Welder Apprentice Name Role Phone Jessy Araujo APRN, SANDY Primary Care Provider Reason for Visit * Ancillary Services (Routine) - Closed Specialty Diagnoses / Procedures Referred By Jona gallagher Referred To Contact Radiology Diagnoses Encounter for screening mammogram for malignant neoplasm of breast Procedures MAMM DIGITAL SCREENING Whit Devi PA-C [address] [place] [address] Referral ID Status Reason Start Date Expiration Date Visits Re quested Visits Authorized [id number] Closed 07/26/2023 10/24/2024 1 1 Encounter Details Date Type Department Care Team (Latest Contact Info) Description 11/19/2023 11:40 AM CDT Ancillary Procedure [facility] [address] [place], [place] [address] Whit Devi PA-C [address] [place] [address] Encounter for screening mammogram for malignant neoplasm of breast Social History Tobacco Use Types Packs/Day Years [...] any clubs o r organizations such as episcopal groups, unions, fraternal or athletic groups, or [...] Answer Date Recorded PHQ-2 Total 0 10/07/2023 [facility] - Occupational Stress Questionnaire Answer Date Recorded [...] Sex Assigned at Female 09/24/2018 4:53 PM FRONT DESK MONITOR Gender Identity Female 09/24/2018 4:53 PM FRONT DESK MONITOR Sexual Orientation Not on file Job Start [...] Name Priority Date/Time Associated Diagnosis Comments MAMM DIGITAL SCREENING Routine 11/19/2023 11:44 AM CDT Encounter for screening mammogram for malignant neoplasm of breast documented in this encounter Results * MAMM DIGITAL SCREENING (11/19/2023 11:44 AM [...] and [place] Computer-Aided Detection System was utilized. BREAST DENSITY: [...] Signed: Petrona Mitchell MD 11/19/2023 5:14 PM Whit Devi PA-C EC MAMMO GRAPHY ORDERABLES documented in this encounter Visit Diagnoses Diagnosis Encounter for screening mammogram for malignant neoplasm of breast Other screening mammogram documented in this encounter Care Teams Welder Apprentice Relationship Specialty Start Date End Date Jessy Araujo APRN, SANDY PCP - General Family Medicine 11/29/21 12/30/23 documented as of this encounter
--- OUTSIDE RECORDS SUMMARY | 2024-02-11 09:49 | XMS_ITS | Encounter Summary ---
Author Organization [facility] [employer] [facility] Address [address] [address] Phone Care Team Providers Care Spinning Doffer Name Role Phone Jessy Araujo APRN, SANDY Primary Care Provider Reason for Visit * Reason Onset Date Comments Registry Management 12/17/2023 Left message for patient to update PHQ9, can return call to [phone]. Encounter Details Date Type Department Care Team (Late st Contact Info) Description 12/17/2023 Patient Outreach [facility] - REGISTRY MANAGEMENT Alessia Stevens [facility] Registry Management (Left message for patient to update PHQ9, can return call to [phone].) Social History Tobacco Use Types Packs/Day Years [...] How often do you attend chur or anabaptist services? Never 07/25/2023 Do you belong to any clubs o r organizations such as muslim groups, unions, fraternal or athletic groups, or [...] Answer Date Recorded PHQ-2 Total 0 10/07/2023 [facility] Occupat ional Health - Occupational Stress [...] Sex Assigned at Female 09/24/2018 4:53 PM NUT ORCHARDIST Gender Identity Female 09/24/2018 4:53 PM NUT ORCHARDIST Sexual Orientation Not on file Job Start [...] on filedocumented in this encounter Care Teams Spinning Doffer Relationship Specialty Start Date End Date Jessy Araujo, CLIENT RESOURCE SPECIALIST, TOP STITCHER PCP - General Family Medicine 11/29/21 12/30/23 documented as of this encounter
--- OUTSIDE RECORDS SUMMARY | 2024-02-11 09:49 | XMS_ITS | Encounter Summary ---
Author Organization [facility] Address [address] [address] Phone Care Team Providers Care Coffee Blender Name Role Phone Xin Alfaro MD Primary Care Provider [phone] Jessy Araujo APRN, CNP Primary Care Provider Whit Devi PA-C Primary Care Pr ovider Encounter Details Date Type Department Care Team (Late st Contact Info) Description 10/08/2017 Scanned - Medical Reports [facility] [address] [place] [address] Abstract, Provider, Social History Tobacco Use Types Packs/Day Years Used Date Smoking Tobacco: Never Smokeless Tobacco: Never Comments:smoked for 1 month at age 17 Alcohol Use Standard Drinks/Week Comments Yes 3.3 (1 standard drink = 0.6 oz p ure alcohol) social. Sex and Gender Information Value Date Recorded Sex Assigned at Female 09/24/2018 4:53 PM PLANER OFFBEARER Gender Identity Female 09/24/2018 4:53 PM PLANER OFFBEARER Sexual Orientation Not on file Job Start Date Occupation Industry Not on file Not on file Not on file documented as of this encounter Plan of Treatment Not on file documented as of this encounter Procedures Procedure Name Priority Date/Time Associated Diagnosis Comments ECG 12 LEAD, TRACING ONLY Routine 08/30/2017 documented in this encounter Results * ECG 12 LEAD, TRACING ONLY (08/30/2017) Provider Abstract MD LAURENT NON-INVASIVE CAR DIOLOGY documented in this encounter Visit Diagnoses Not on filedocumented in this encounter Additional Health Concerns Infection Onset Date Last Indicated Resolved Time R/O C. Diff 03/15/2019 03/15/2019 04/12/2019 11:0 6 PM CDT R/O Enteric Pathogens 03/15/2019 03/15/20192018 11:06 PM CDT R/O COVID-19 11/09/2019 11/09/2019 11/10/2019 2:55 PM CDT R/O COVID-19 04/24/2020 04/24/2020 04/25/2020 2:35 PM CDT R/O COVID-19 08/01/2020 08/01/2020 08/03/2020 5:17 AM PLANER OFFBEARER R/O C. Diff 10/28/2020 10/28/2020 10/28/2020 4:47 PM CDT R/O Enteric Pathogens 10/28/2020 10/28/20202020 9:18 AM CDT COVID-19 Confirmed Comment:Tested positive 03/06/22 03/07/2022 03/13/2022 022 11:06 PM CDT R/O Enteric Pathogens 03/13/2022 03/14/20222021 8:05 PM CDT R/O C. Diff 03/13/2022 03/14/2022 03/14/2022 4:40 PM CDT documented as of this encounter Care Teams Coffee Blender Relationship Specialty Start Date End Date Xin Alfaro MD [address] [place] [phone] PCP - General Family Medicine 10/26/16 11/28/21 Jessy Araujo APRN, REHABILITATION TECH [address] [place] [phone] PCP - General Family Medicine 11/29/21 12/30/23 Whit Devi PA-C [address] [place] [address] PCP - General Family Medicine 12/31/23 documented as of this encounter
[2024-02-11 09:50] LABS: Basophils Absolute Auto 0.04 K/uL (0.00-0.30); Basophils Percent Auto 0.5 % (0.0-3.0); Eosinophils Absolute Auto 0.15 K/uL (0.00-0.50); Eosinophils Percent Auto 1.8 % (0.0-7.0); Hematocrit 38.1 % (33.0-51.0); Hemoglobin* 12.3 gm/dL (12.0-16.0); Immature Granulocytes Abs Auto 0.05 K/uL (0.00-0.30); Immature Granulocytes Pct Auto 0.6 %; Lymphocytes Percent Auto 13.5 % (20-44); Mean Corpuscular HGB Conc 32 gm/dL (32-36); Mean Corpuscular Hemoglobin 27 pg (26-34); Mean Corpuscular Volume 85 fL (80-100); Monocytes Percent Auto 7.1 % (0.0-11.0); Neutrophils Percent Auto 76.5 % (42.0-72.0); Platelet Count* 278 K/uL (140-440); RDW Coefficient of Variation % 12.5 % (11.5-15.5); Red Blood Count 4.49 m/uL (4.00-5.20); White Blood Count* 8.27 K/uL (4.50-11.00)
[2024-02-11 09:53] LABS: Slide Review Reflex No
[2024-02-11 10:00] LABS: Troponin, Point-of-Care* 0.01 ng/ml (0.01-0.04)
[2024-02-11 10:03] LABS: Chloride* 105 mmol/L (96-114); Sodium* 136 mmol/L (135-149)
[2024-02-11 10:04] LABS: Potassium* 4.1 mmol/L (3.6-5.1)
[2024-02-11 10:06] LABS: Creatinine* 0.7 mg/dL (0.5-1.5); Est. Creatinine Clearance* 103.46; Estimated Glomerular Filt Rate 109 ml/min
[2024-02-11 10:07] LABS: Anion Gap 6 mEq/L (7-15); Blood Urea Nitrogen* 11 mg/dL (5-24); Calcium* 9.2 mg/dL (8.4-10.6); Carbon Dioxide* 25 mmol/L (20-32); Glucose* 96 mg/dL (60-115)
[2024-02-11 10:10] LABS: C Reactive Protein* 1.6 mg/dL (0.5-1.0)
[2024-02-11 10:15] LABS: D Dimer Quantitative* < 0.27 ug/ml (0.00-0.50)
[2024-02-11 10:19] LABS: NT Pro B Type NatriureticPept* 209 pg/mL; Troponin I* < 0.01 ng/mL (0.01-0.04)
[2024-02-11 10:27] VITALS: BP 166/93
[2024-02-11 10:29] VITALS: RESP 16; O2SAT 98
[2024-02-11 10:41] LABS: PCR FLU A Negative PCR FLU A (Negative); PCR FLU B Negative PCR FLU B (Negative); PCR RSV Negative PCR RSV (Negative); SARS PCR* Negative SARS-CoV-2 (Negative)
== END 2024-02-11 11:23 | disposition home or self-care (01) ==
PROVIDERS: Emergency Provider Family Medicine
DX: R07.89 Other chest pain (principal); F43.9 Reaction to severe stress, unspecified
CPT/HCPCS: 36415; 71046; 80048; 83880; 84484; 85025; 85379; 86140; 87631; 93005; 99284; 99285